=== PATIENT | female | born 1980 | race Caucasian/White ===

== ENCOUNTER 2020-01-30 09:03 | Emergency (ER) | payer OTHER, SELFPAY ==
--- NOTE | ~2020-01-30 | XR_ITS ---
EXAMINATION: XR foot RT min 3V EXAM DATE: 01/30/2020 09:37 INDICATION: No known recent injury provided at this time. Pain of the right foot. TECHNIQUE: Right foot dorsoplantar, lateral and oblique projections obtained and reviewed. There is no prior study for comparison. FINDINGS: Right metatarsal bones unremarkable. There are no bony erosions identified. No periosteal reaction or band of sclerosis to suggest subacute stress fracture. There are no acute fractures or d islocations identified. There is no subcutaneous gas. The soft tissue is unremarkable. There are no radiopaque foreign bodies. IMPRESSION: 1. Unremarkable XR foot RT min 3V exam. Reviewed, dictated and finalized at location A.
[2020-01-30 09:20] VITALS: BP 119/72; PULSE 87; RESP 16; TEMP 36.2; O2SAT 100
--- NOTE | 2020-01-30 09:47 | ED.LOWEXIN ---
HPI - Extremity Injury (Lower) General Chief Complaint: Extremity Injury, Lower Stated Complaint: right foot injury History of Present Illness HPI Narrative: Patient was bit by a dog two weeks ago and about two days ago her foot started to hurt and it is painful even with touch. Patient dog bite is now red and painful and her toes are swollen. Patient denies going to her doctor after she was bit. Per patient the bite was not that bad so she thought she didn't need to go her td is up to date and she denies any fever. Related Data Home Medications Medication Instructions Recorded Confirmed fluoxetine [Prozac] mg 01/30/20 Allergies Allergy/AdvReac Type Severity Reaction Status Date / Time erythromycin base Allergy Rash Verified 01/30/20 09:21 iohexol Allergy Difficulty Verified 01/30/20 09:21 [From contrast - CT, X-RAY] Breathing latex Allergy Itching Verified 01/30/20 09:21 Penicillins Allergy Anaphylactic Verified 01/30/20 09:21 Shock Review of Systems Review of Systems: Narrative: CONSTITUTIONAL: Denies fever, chills, or sweats. EYES: Denies visual changes, redness, or discharge. ENT: Denies rhinorrhea, congestion, sore throat, or otalgia. CARDIOVASCULAR:Denies chest pain, palpitations, or edema. RESPIRATORY: Denies cough or dyspnea. GASTROINTESTINAL: Denies abdominal pain, nausea, vomiting, or diarrhea. GENITOURINARY: Denies dysuria or hematuria. SKIN:[Denies rash or itching. MUSCULOSKELETAL:Denies back pain, joint pain, or myalgia. Right foot pain NEUROLOGIC: Denies headache, numbness, or weakness. PSYCHIATRIC:Denies anxiety or depression PMFSH Comments At time as signature, I have reviewed and agree with nursing past medical, social, surgical and family history. Please see nursing chart for further information. There is no relevant family history pertinent to the presenting complaint. Exam Narrative: Exam Narrative: GENERAL:Well-appearing, well-nourished, and in no acute distress. HEAD:Normocephalic, atraumatic. EYES: PERRLA and EOMI. ENT: Nares clear, no rhinorrhea or epistaxis. Mucous membranes moist. NECK: Supple. CHEST: Clear to auscultation. No respiratory distress. HEART: Regular rate and rhythm. No murmur heard. Normal peripheral pulses. ABDOMEN: Soft, nontender, nondistended, normal active bowel sounds. EXTREMITIES: Normal range of motion. Mild foot and toe edema small area on the top of the foot were bite claudia is slight erythema severe pain on the dorsal severe pain into interdigital spaces and the sulcus space.. SKIN: Warm, dry, no rash. NEURO: No focal deficits. Alert and oriented x3. Course Vital Signs Vital signs: Vital Signs Temperature 97.1 F L 01/30/20 09:20 Pulse Rate 87 01/30/20 09:20 Respiratory Rate 16 01/30/20 09:20 Blood Pressure 119/72 01/30/20 09:20 Pulse Oximetry 100 01/30/20 09:20 Temperature 97.1 F L 01/30/20 09:20 Pulse Rate 87 01/30/20 09:20 Respiratory Rate 16 01/30/20 09:20 Blood Pressure 119/72 01/30/20 09:20 Pulse Oximetry 100 01/30/20 09:20 MDM - Extremity Injury (Lower) Differential Diagnosis Differential diagnosis: Likely ankle sprain and strain, acute internal derangement of knee, fracture of femur and other (cellulitis) Discharge Plan Discharge Clinical Impression: Acute foot pain Qualifiers: Laterality: right Qualified Code(s): M79.671 - Pain in right foot Cellulitis Qualifiers: Site of cellulitis: unspecified site Qualified Code(s): L03.90 - Cellulitis, unspecified Patient Disposition: Home, Self-Care Condition: Stable Instructions: Antibiotic Form, Cellulitis (ED) Prescriptions: New sulfamethoxazole-trimethoprim [Bactrim DS] 800-160 mg tablet 1 tablet PO Q12H 10 Days Qty: 20 RF: 0 No Action fluoxetine [Prozac] 10 mg Capsule RF: 0 Follow-up/Referrals: UNKNOWN,DOCTOR [Primary Care Provider] - Time of Disposition: 09:49 Discharge Date/Time: 01/30/20 09:54
== END 2020-01-30 09:54 | disposition home or self-care (01) ==
PROVIDERS: Emergency Provider Nurse Practitioner Family
DX: L03.115 Cellulitis of right lower limb (principal); W54.0XXA Bitten by dog, initial encounter
CPT/HCPCS: 73630; 99203; G0463

== ENCOUNTER 2025-06-14 13:01 | Emergency (ER) | payer OTHER, SELFPAY ==
--- OUTSIDE RECORDS SUMMARY | 2018-05-07 04:56 | XMS_ITS | Continuity of Care Document ---
Author Organization [facility] Address [address] [place] [address] Phone Care Team Providers Care Feather Sawyer Name Role Phone Charu Arias Unavailable Unavailable Allergies, Adverse Reactions, Alerts Substance Reaction Status Criticality latex rash Active No Information azithromycin Active No Information Penicillins Anaphylaxis Active No Information POTASSIUM CLAVULANATE Anaphylaxis Active No Inf ormation AMOXICILLIN TRIHYDRATE Anaphylaxis Active No In formation Medications Medication Instructions Dosage Effective Dates (start - stop) Status Comments alprazolam 0.5 mg tablet take 1 tablet by ORAL route 3 times every day use prn anxiety 0.5 MG - Active will need appt for refills fluoxetine 20 mg tablet TAKE 1 AND 1/2 TABLETS BY ORAL ROUTE EVERY DAY IN THE MORNING - Active hyoscyamine 0.125 mg sublingual tablet take 1 - 2 by Oral route every 4 - 6 hours prn abdominal pain - Active Procedures Procedure Date PREV VISIT, EST, AGE 18-39 OFFICE/OUTPATIENT VISIT, EST OFFICE/OUTPATIENT VISIT, EST OFFICE/OUTPATIENT VISIT, EST Depression Scrn, Documented As Pos W/ F/ u Plan OFFICE/OUTPATIENT VISIT, EST OFFICE/OUTPATIENT VISIT, EST Triamcinolone diacetate inj Arthrocentesis, small joint/bursa OFFICE/OUTPATIENT VISIT, NEW Advance Directives Directive Yes / No Effective Date File Name No Information Encounters Encounter Description Practice Location Reason(s) For Visit Diagnoses Date Provider Providers Copied on Encounter [facility], [address], [place], [id number], [place] tel:[phone] [facility] No Information 8 Kartik Box. [address] [place], [address], [place]. tel:[phone] [facility], [address], [place], [id number], [place] tel:[phone] [facility] No Information 7 Kartik Box. [address] [place], [address], [place]. tel:[phone] PREV VISIT, EST, AGE 18-39 [facility], [address], [place], [id number], [place] tel:[phone] [facility] Preventive exam (chief complaint)U RI (chief complaint) Encntr for general adult medical exam w/o abnormal findingsBreast cancer screeningCervic al cancer screeningScreen ing examination for infectious diseaseScreenin g for vaginal cancerS/P IRMA (total abdominal hysterectomy)Fa milial hypercholestere miaVitamin D deficiencySever e anxiety with panicInfection of airways 7 Kartik Box. [address] [place], [address], [place]. tel:[phone] OFFICE/OUTPA TIENT VISIT, EST [facility], [address], [place], [id number], [place] tel: [phone] [facility] Depression (chief complaint) Severe anxiety with panic 7 Chandan Flor. [address], [place], [id number], [place]. tel:[phone] OFFICE/OUTPA TIENT VISIT, EST [facility], [address], [place], [id number], [place] tel:[phone] [facility] Anxiety (chief complaint) Severe anxiety with panicDepression screening 7 Chandan Flor. [address], [place], [id number], [place]. tel:[phone] OFFICE/OUTPA TIENT VISIT, EST [facility], [address], [place], [id number], [place] tel:[phone] [facility] Follow Up of Abdominal pain (chief complaint) Abdominal pain, chronic, left lower quadrantCigaret te nicotine dependence without complicationIrr itable bowel syndrome with diarrhea 7 Willard Biswas. [address], [place], [id number], [place]. tel:[phone] OFFICE/OUTPA TIENT VISIT, EST [facility], [address], [place], [id number], [place] tel:[phone] [facility] depression (chief complaint)n ight sweating (chief complaint) Recurrent major depressive disorder, in remissionNight sweats 7 Kartik Box. [address] [place], [address], [place]. tel:[phone] OFFICE/OUTPA TIENT VISIT, NEW [facility], [address], [place], [id number], [place] tel:[phone] [facility] depression (chief complaint)M usculoskele anai pain (chief complaint)c hronic abdominal pain (chief complaint) Recurrent major depressive disorder, in remissionDegene rative arthritis of thumb, leftAbdominal pain, chronic, left lower quadrantOther chronic pain 7 Kartik Box. [address] [place], [address], [place]. tel:[phone] Family History Family Member Type Diagnosis Age At Onset Brother Problem (finding) malignant neoplasm of k idney Father Problem (finding) hypertension Father Problem (finding) diabetes mellitus type 2 Problem (finding) No family history of Al zheimer's disease Mother Problem (finding) raised blood lipids Sister Problem (finding) depression Brother Problem (finding) depression Mother Problem (finding) depression Mother Problem (finding) migraine Father Problem (finding) coronary arterioscleros is Problem (finding) No family history of St roke Problem (finding) No family history of As thma Immunizations Vaccine Date Status Comments Tdap (Adacel) administered Source: Other Registry Payers Payer name Insurance type Covered democrat ID Lilly Kirk (s) Open Access Plus CI [id number] Social History Type Description Quantity Date Captured Comments Alcohol Use Details Unknown Caffeine Use Details Unknown Tobacco Use Status Smoking Status No Information Sex Female Chief Complaint And Reason For Visit No Information Reason For Referral Reason For Referral No Information Plan Of Treatment Date Type Action Status Goal Tobacco cessation counseling completed Goal Tobacco cessation counseling completed Referral Ordered: Referral to Quitline ordered History Of Present Illness Encounter Date Complaint History Of Prese nt Illness Preventive exam The patient stat es she uses none and hysterectomy for control. Her menses is absent. Negative for: breast discharge, breast lump(s) and breast pain. Positive for: breast self exam. Pertinent negatives include anxiety, depression, sleep disturbances, urinary incontinence, urinary urgency and vaginal discharge. Diet healthy.The patient states her exercise frequency is 3-4 times/week. The patient does use tobacco. Tobacco cessation has been discussed. She does drink alcohol. Additional information: Brerast enlargement in the course of last 2 months. URI The symptoms hav e worsened. The symptoms occur constantly. The patient presents with chills, cough, earache and fatigue. The illness is associated with hoarseness. Depression This is a follow up visit. The patient presents with compulsive thoughts, difficulty concentrating and feelings of guilt but denies anxious/fearful thoughts, decreased need for sleep, depressed mood, difficulty falling asleep, difficulty staying asleep, diminished interest or pleasure, easily startled, excessive worry or fatigue. Additional information: Patient states she is feeling better. has been using the alprazolam nightly; skipped one night and woke in a panic; has seen the therapist 3x and has another appt today; plans to try to go back on 08/04; classified advertising supervisor advised her not to speak with physician involved in the case that is causing the stress; likes being off and having more time with family and less called; turned off phone as was getting 10 calls from work/d; has decided to drop transplant team/call and do just vascular which will be less stressful; Anxiety This is an initi al visit. The patient presents with anxious/fearful thoughts, decreased need for sleep, depressed mood, difficulty concentrating, difficulty falling asleep, difficulty staying asleep, diminished interest or pleasure, easily startled, excessive worry, fatigue, feelings of guilt, racing thoughts and restlessness but denies compulsive thoughts or paranoia. Additional information: Patient states 2 weeks ago one of her patients she is now having anxiety and depression. Friend also and dad passed in past 1.5 yrs; angry about loss of pt on 07/08 and having trouble processing since feels more could have been done. out 07/11 afternoon; sent home early on 07/15 and out 07/16,5,6,9; Follow Up of Abdominal pain Onse t: 10 years ago. Duration is varies. It occurs randomly. The problem is worse. Location is LLQ. There is no radiation. Context: no pattern noted. Symptom is aggravated by food. Associated symptoms include blood in stool, diarrhea, heartburn and nausea. Pertinent negatives include back pain, bloating, constipation, dyspnea, eructation, fever, flank pain, flatulence, menstruation, reflux and vomiting. Additional information: new to us from [facility]. extensive w/u in the past through [facility]. records in chart. had been doing better since 07/29(pain manageable and didn't require being seen). flaring again in last 3 d. IRMA but has left ovary. pt doesn't remember if she's tried prn antispasmodics or not. h/o cholecystectomy. off narcotics since 07/29. uses peppermint tea to help. on fluoxetine for 17yrs. prozac increased at last visit-helping her moods. desires to quit smoking. had suicidal thoughts age 20 but none since then and that was only. missing work right now due to this flare. depression This is a follow up visit. There is improvement of initial symptoms. The patient reports functioning as somewhat difficult. The patient presents with anxious/fearful thoughts, difficulty falling asleep, difficulty staying asleep and poor judgment but denies difficulty concentrating. The patient's risk factors include history of depression. The patient's relieving factors are medication (fLUOXETINE). Additional information: Pt is here today for a med check for fluoxetine. Stated that the doseage that she is currently on is managing her symptoms well. Having some sleeping issues also waking up in sweats. night sweating waking up in a s weat in middle of the night, every night wakes up, last 6months to 1 yr. H/O TAHRSO, left retained, 11 yrs ago. depression This is an initi al visit. The symptoms occur constantly. The patient does not present with depressed mood, diminished interest or pleasure or thoughts of or suicide. The patient's risk factors include history of depression. The depression is aggravated by conflict or stress. The patient's relieving factors are medication (floxetine). Additional information: Pt states the Prozac manages her sx's well when she is on it. Musculoskeletal pain Onset: 2 ye ars ago. Duration: 2 Years. Severity level is 5. It occurs constantly and is worsening. Location: right Right Shoulder and and also toes. There is no radiation. The pain is aching, dull, sharp and throbbing. Context: there is no injury. The pain is aggravated by night pain and grabbing. The pain is relieved by OTC medicines: ibuprofen. 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 Pertinent negatives include numbness and popping. Hand Dominance: right. Additional information: Family history RA recent labs per the patient stated she has high RF in them. 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 Left thumb is the worst. chronic abdominal pain 3 colonos copies previously, no UC or CD, IBS is possible, on some meds and diet for this, stress effects that. Baltalazide, [place] and Dilaudid rx for gut in the past. 15 days/yr steroids due to this at [place]. No longer on dilaudid, norco. Raw veggies and red meat also give her sensitivity. Interested in food sensitivity testing Functional Status Date Functional Assessmen t No Information Instructions Date Instruction Additional Infor antonio Dec-13-2017 Z-pack Related to Infec tion of airways If you have anxiety and/or depression and feel worse or if you may harm yourself or others, you will need to seek immediate care either here or in the Emergency Department. An emergent evaluation will be done and help will be given. If you do not feel as if your medication is helping you, we will need to see you to make a plan. I strongly encourage seeing a counsellor in addition to medication treatment to assist you. Related to Severe anxiety with panic Breast exam done, tara leos self breast exam monthly. This is the first line in breast cancer prevention along with routine mammograms starting at 40 y/o. Each patient will have specific recommendations with their family history and breast exam. Return for any changes in your breasts or abnormal lumps. Related to Breast cancer screening continue fluoxetine and alprazolam at night; continue counselling; goal to eventually just have alprazolam prn; Related to Severe anxiety with panic continue fluoxetine at current dose; add alpazolam as needed. See [facility] for counselling; Hopefully back to work 08/04 after 2 wks of intensive therapy. Encouraged to request meeting with OR team to process event. Related to Severe anxiety with panic start chantix. d/c a nd call me immediately if any increased agitation, dreams, suicidal thoughts or worsening depression. due to nause as adr, pt advised to start this once her current ibs flare under control. Related to Cigarette nicotine dependence without complication trial of xifaxin. wo rk off 3d. use prn hyoscyamine in order to hopefully be able to get back to work in 2d. pt needs to quit smoking also. f/u in 1month. discussed ibs in detail with pt today. Related to Irritable bowel syndrome with diarrhea Pt has dx'd IBS diar gricel. w/u extensive in past. no need for further w/u. consider food allergy testing if pt fails xifaxin. seee problem #2. Related to Abdominal pain, chronic, left lower quadrant Suggested education reviewed for Abdominal pain, chronic, left lower quadrant (R10.32), chronic, Act Related to {[email or web address]} Please let us know i f you are not improving or if you are worse. Most people will improve, but there are times when you are worse or not improving and you must let us know so we can form a plan of action. We have senior loss control specialist physicians and are open a half a day Friday (9am-1pm). If you think you are having a reaction to a medication please call or seek care for emergent symptoms. Related to Night sweats Please let us know i f you are not improving or if you are worse. Most people will improve, but there are times when you are worse or not improving and you must let us know so we can form a plan of action. We have senior loss control specialist physicians and are open a half a day Friday (9am-1pm). If you think you are having a reaction to a medication please call or seek care for emergent symptoms. Related to Degenerative arthritis of thumb, left If you have anxiety and/or depression and feel worse or if you may harm yourself or others, you will need to seek immediate care either here or in the Emergency Department. An emergent evaluation will be done and help will be given. If you do not feel as if your medication is helping you, we will need to see you to make a plan. I strongly encourage seeing a counsellor in addition to medication treatment to assist you. Related to Recurrent major depressive disorder, in remission Assessments Type Assessment Date No Information Patient Care Teams Name Effective Dates (start - stop) Status Members No Information
--- OUTSIDE RECORDS SUMMARY | 2018-05-07 04:56 | XMS_ITS | Continuity of Care Document ---
Author Organization [facility] Address [address] [place] [address] Phone Care Team Providers Care Freight Receiver Name Role Phone Charu Arias Unavailable Unavailable [...] Diagnoses Date Provider Providers Copied on Encounter [facility], [address], [place], [id number], [place] tel:[phone] [facility] No Information 8 Kartik Box. [address] [place], [address], [place]. tel:[phone] [facility], [address], [place], [id number], [place] tel:[phone] [facility] No Information 7 Kartik Box. [address] [place], [address], [place]. tel:[phone] PREV VISIT, EST, AGE 18-39 [facility], [address], [place], [id number], [place] tel:[phone] [facility] Preventive exam (chief complaint)U RI (chief complaint) Encntr for general adult medical exam w/o abnormal findingsBreast cancer screeningCervic al cancer screeningScreen ing examination for infectious diseaseScreenin g for vaginal cancerS/P IRMA (total abdominal hysterectomy)Fa milial hypercholestere miaVitamin D deficiencySever e anxiety with panicInfection of airways 7 Kartik Box. [address] [place], [address], [place]. tel:[phone] OFFICE/OUTPA TIENT VISIT, EST [facility], [address], [place], [id number], [place] tel: [phone] [facility] Depression (chief complaint) Severe anxiety with panic 7 Chandan Flor. [address], [place], [id number], [place]. tel:[phone] OFFICE/OUTPA TIENT VISIT, EST [facility], [address], [place], [id number], [place] tel:[phone] [facility] Anxiety (chief complaint) Severe anxiety with panicDepression screening 7 Chandan Flor. [address], [place], [id number], [place]. tel:[phone] OFFICE/OUTPA TIENT VISIT, EST [facility], [address], [place], [id number], [place] tel:[phone] [facility] Follow Up of Abdominal pain (chief complaint) Abdominal pain, chronic, left lower quadrantCigaret te nicotine dependence without complicationIrr itable bowel syndrome with diarrhea 7 Willard Biswas. [address], [place], [id number], [place]. tel:[phone] OFFICE/OUTPA TIENT VISIT, EST [facility], [address], [place], [id number], [place] tel:[phone] [facility] depression (chief complaint)n ight sweating (chief complaint) Recurrent major depressive disorder, in remissionNight sweats 7 Kartik Box. [address] [place], [address], [place]. tel:[phone] OFFICE/OUTPA TIENT VISIT, NEW [facility], [address], [place], [id number], [place] tel:[phone] [facility] depression (chief complaint)M usculoskele anai pain (chief complaint)c hronic abdominal pain (chief complaint) Recurrent major depressive disorder, in remissionDegene rative arthritis of thumb, leftAbdominal pain, chronic, left lower quadrantOther chronic pain 7 Verdugo Charu. [address] [place], [address], [place]. tel:[phone] Family History Family Member Type Diagnosis Age At Onset Brother Problem (finding) malignant neoplasm of k idney Father Problem (finding) hypertension Father Problem (finding) diabetes mellitus type 2 Problem (finding) No family history of St roke Problem (finding) No family history of Al zheimer's disease Mother Problem (finding) raised blood lipids Sister Problem (finding) depression Problem (finding) No family history of As thma Brother Problem (finding) depression Mother Problem (finding) depression Mother Problem (finding) migraine Father Problem (finding) coronary arterioscleros is Immunizations Vaccine Date Status Comments Tdap (Adacel) administered Source: Other Registry Payers Payer name Insurance type Covered democrat ID Lilly Kirk (s) Open Access Plus CI [id number] Social History Type Description Quantity Date Captured [...] to try to go back on 08/04; rate supervisor advised her not to speak with [...] awakening, nocturnal pain, swelling, weakness and Loses occupational physician strength. Pertinent negatives include numbness and popping. Hand Dominance: right. Additional information: Family history RA recent labs per the patient stated she has high RF in them. 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 Left thumb is the worst. chronic abdominal pain 3 colonos copies previously, no UC or CD, IBS is possible, on some meds and diet for this, stress effects that. Baltalazide, [place] and Dilaudid rx for gut in the past. 15 days/yr steroids due to this at [place]. No longer on dilaudid, norco. Raw veggies [...] Related to Cigarette nicotine dependence without complication Pt has dx'd IBS diar gricel. w/u extensive in past. no need for further w/u. consider food allergy testing if pt fails xifaxin. seee problem #2. Related to Abdominal pain, chronic, left lower quadrant trial of xifaxin. wo rk off 3d. use prn hyoscyamine in order to hopefully be able to get back to work in 2d. pt needs to quit smoking also. f/u in 1month. discussed ibs in detail with pt today. Related to Irritable bowel syndrome with diarrhea Suggested education reviewed for Abdominal pain, chronic, left lower quadrant (R10.32), chronic, Act Related to {[email or web address]} Please let us know i f you are not improving or if you are worse. Most people will improve, but there are times when you are worse or not improving and you must let us know so we can form a plan of action. We have insulation machine operator physicians and are open a half a [...] form a plan of action. We have insulation machine operator physicians and are open a half a [...]
--- NOTE | ~2025-06-14 | XR_ITS ---
EXAM/PROCEDURE: XR chest 2V - 06/14/2025 15:10 CDT HISTORY: 45 years old Female with choked on pill, sob TECHNIQUE: Two view(s) of the chest. COMPARISON: None available. FINDINGS: LUNGS/ PLEURA: No focal consolidation. Mild perihilar bronchial wall thickening. HEART/ MEDIASTINUM: Heart appears normal in size. BONES: Degenerative changes. OTHER: Right upper quadrant cholecystectomy clips. IMPRESSION: No focal consolidation. Mild perihilar bronchial wall thickening, findings suggestive of respiratory bronchiolitis. Reviewed, dictated and finalized at location N. IMPRESSION: No focal consolidation. Mild perihilar bronchial wall thickening, findings sugg estive of respiratory bronchiolitis.
--- NOTE | ~2025-06-14 | CT_ITS ---
EXAMINATION: CT soft tissue neck wo con DATE: 06/14/2025 18:27 INDICATION: Possible foreign body TECHNIQUE: Computed tomography (CT) of the cervical spine was performed without intravenous contrast. The dose-length product was 132.64 mGy-cm. Automated exposure control and iterative reconstruction technique were employed. COMPARISON: None FINDINGS: Paranasal sinuses and mastoids are pneumatized. No significant cervical soft tissue abnormality. No evidence for foreign body. No paraspinal soft tissue edema. Epiglottis within normal limits. No subglottic narrowing. There are gland is unremarkable. Lung apices are normal. Mild cervical spon dylosis. IMPRESSION: 1. Unremarkable CT neck. No foreign body identified. Reviewed, dictated and finalized at location O.
--- NOTE | ~2025-06-14 | XR_ITS ---
EXAM/ PROCEDURE: XR soft tissue neck - 06/14/2025 15:10 CDT HISTORY: 45 years old Female with choked on pill, sob COMPARISON: None available TECHNIQUE: Two view(s) FINDINGS/ IMPRESSION: There are no fractures or dislocations.Joint spaces are within normal limits. No radiopaque foreign body seen. Reviewed, dictated and finalized at location N.
--- NOTE | ~2025-06-14 | CT_ITS ---
EXAMINATION: CT diagnostic chest wo con DATE: 06/14/2025 18:27 INDICATION: Possible foreign body TECHNIQUE: Computed tomography (CT) of the chest was performed without intravenous contrast. The dose-length product was 132.64 mGy-cm. Automated exposure control and iterative reconstruction technique were employed. COMPARISON: None FINDINGS: Heart size normal. No significant pleural or pericardial effusion. No thoracic lymphadenopathy. Status post cholecystectomy. No foreign bodies identified. No endobronchial lesions. No focal consolidation. No pneumothorax. No thoracic lymphadenopathy. No acute osseous abnormality. Mild thoracic spondylosis. IMPRESSION: 1. No acute cardiopulmonary disease. No evidence for foreign body. Reviewed, dictated and finalized at location O.
[2025-06-14 13:05] VITALS: BP 111/71; PULSE 106; RESP 18; TEMP 36.3; O2SAT 100
--- OUTSIDE RECORDS SUMMARY | 2025-06-14 13:13 | XMS_ITS | Clinical Summary ---
Author Organization [facility] [address] [place] [address] Address [facility] [place] [address] Care Team Providers Care Family Day Care Provider Name Role Phone Charu Busby MD Primary Care Provider [phone] Allergies Active Allergy Reactions Criticality Noted Date Comments Doxycycline Rash Low 11/09/2020 Given at the time of several other new meds. Not sure if this is actually the allergy. Iodinated Contrast Media Other (See Comments) 05/08/2022 Iodine Shortness of Breath/Wheezing High 06/04/2019 Contrast media Latex Shortness of Breath/Wheezing High 06/04/2019 Penicillins Anaphylaxis High 06/04/2019 Medications cholecalciferol 1,250 mcg (50,000 unit) CapsuleIndicatio ns:Vitamin D deficiency Take 1 Capsule (50,000 Units) by mouth every 7 days. 12 Capsule 4 Active diclofenac sodium (VOLTAREN) 75 mg Tablet, Delayed Release (E.C.)Indication s:Arthralgia, unspecified joint Take 1 Tablet (75 mg) by mouth 2 times daily as needed for Pain. 60 Tablet 4 Active amitriptyline (ELAVIL) 10 mg tabletIndication s:IBD (inflammatory bowel disease),Arthrit is,Irritable bowel syndrome with constipation Take 1 Tablet (10 mg) by mouth daily at bedtime. 90 Tablet 08/24/2024 4:26 PM MANAGER CENTER 4 Active linaCLOtide (LINZESS) 145 mcg capsuleIndicatio ns:Irritable bowel syndrome with constipation Take 1 Capsule (145 mcg) by mouth daily before breakfast. 90 Capsule 09/23/2024 7:22 PM MANAGER CENTER 4 Active progesterone micronized (PROMETRIUM) 100 mg Capsule Take 1 Capsule (100 mg) by mouth daily at bedtime. 90 Capsule 3 05/23/2025 10:09 AM CDT 5 Active FLUoxetine (PROzac) 40 mg capsule Take 1 Capsule (40 mg) by mouth daily. 100 Capsule 3 05/23/2025 10:09 AM CDT 5 Active spironolactone (ALDACTONE) 50 mg tablet Take 1 Tablet (50 mg) by mouth daily. 30 Tablet 12/10/2024 7:49 PM MANAGER CENTER 5 Active methylPREDNISolo ne (MEDROL DOSPACK) 4 mg Tablets, Dose Pack Take as directed on package. 21 Tablet 03/02/2025 4:09 PM CDT 5 Active orphenadrine (NORFLEX) 100 mg Extended Release tablet Take 1 Tablet (100 mg) by mouth 2 times daily. 60 Tablet 2 05/23/2025 10:09 AM CDT 5 Active buPROPion HCL (WELLBUTRIN XL) 150 mg Extended Release 24 hour tabletIndication s:Recurrent major depressive disorder, in partial remission Take 1 Tablet (150 mg) by mouth every morning. 90 Tablet 3 05/23/2025 10:09 AM CDT 5 Active buPROPion HCL (WELLBUTRIN XL) 150 mg Extended Release 24 hour tabletIndication s:Recurrent major depressive disorder, in partial remission Take 1 Tablet (150 mg) by mouth daily in the morning. 100 Tablet 3 02/14/2025 7:08 PM CDT 4 05/19/20 25 Discontinu ed(Reorder ) orphenadrine (NORFLEX) 100 mg Extended Release tablet Take 1 Tablet (100 mg) by mouth 2 times daily as needed. 90 Tablet 1 11/29/2024 6:41 PM MANAGER CENTER 4 05/20/20 25 Discontinu ed(Duplica te Therapy) Active Problems Problem Noted Date Diagnosed Date Arthritis 05/08/2022 IBD (inflammatory bowel disease) 07/10/2020 Overview (05/08/2022): Added automatically from request for surgery [id number] Depression 05/04/2018 Resolved Problems Problem Noted Date Diagnosed Date Resolved Date Large bowel obstruction 06/28/2020 12/2 05/2022 Encounters Date Type Department Care Team Description 05/19/2025 8:30 AM CDT Telephone Check Up [facility] [address] [place] [address] Marilu Aceves, PHARMACIST Chronic fatigue (Primary Dx); Insomnia, unspecified type; Perimenopausal symptoms 05/19/[address] [facility] [address] [place] [phone] Charu Busby MD Recurrent major depressive disorder, in partial remission 05/19/[address] [facility] [address] [place] [address] Charu Busby MD Perimenopausal symptoms (Primary Dx); Screening mammogram, encounter for 03/15/2025 External Device Data STL ABSTRACTION Provider, Abstract from Last 3 Months Immunizations Immunization Administration Dates Next Due (PFIZER)(12 YR UP) COVID-19 VACCINE - EMERGENCY USE AUTHORIZATION, MRNA, [id number]) 30 MCG/0.3 ML IM SUSP 08/01/2021 Influenza Seasonal Unspecifi ed Formulation IM 07/27/2024,07/29/2023,07/29/2023,2021,06/27/2022,07/06/2021 Family History Medical History Relation Name Comments No Known Problems Daughter Heart Disease Father Anil Avery Depression Mother Juanitomj Avery Sprunt High Cholesterol Mother Juanito Gena Sprunt Arthritis-rheumatoid Paternal Grandmother Dot valent Heart Disease Paternal Grandmother Dot valent Other Paternal Grandmother Dot valent Rheumat oid arthritis Relation Name Status Comments Brother Alive Daughter Alive Father Anil Yuenent Alive Maternal Grandfather Maternal Grandmother Alive Mother Juanitomj Avery Sprunt Alive Paternal Grandfather Paternal Grandmother Dot valent Sister Alive Social History Tobacco Use Types Packs/Day Years Used Date Smoking Tobacco: Former Cigarettes 0.3 20 0 10/14/2001 - 10/14/2021 Passive Smoke Exposure: Never Smokeless Tobacco: Never Tobacco Cessation:Counseling Given: No Alcohol Use Standard Drinks/Week Comments Yes 14 (1 standard drink = 0.6 oz pu re alcohol) 1-2 per night Feeling Safe Answer Date Recorded Are you in a relationship wi th someone who hurts you emotionally and/or physically? Unable to obtain 03/28/2023 Comments No Sex and Gender Information Value Date Recorded Sex Assigned at Not on file Legal Sex Female 5:28 PM CDT Gender Identity Not on file Sexual Orientation Not on file Last Filed Vital Signs Vital Sign Reading Time Taken Comments Blood Pressure 116/82 03/02/2025 3:06 PM CDT Pulse 77 03/02/2025 3:06 PM CDT Temperature 37 C (98.6 F) 03/02/2025 3:06 PM CDT Respiratory Rate 20 03/02/2025 3:06 PM CDT Oxygen Saturation 99% 03/02/2025 3:06 PM CDT Inhaled Oxygen Concentration - - Weight 62.6 kg (138 lb) 03/02/2025 3:06 PM CDT Height 160 cm (5' 3) 03/02/2025 3:06 PM CDT Body Mass Index 24.45 03/02/2025 3:06 PM CDT Plan of Treatment Upcoming Encounters Date Type Department Care Team (Late st Contact Info) Description 09/30/2025 8:00 AM MANAGER CENTER Office Visit [facility] Primary [facility] [address] [place] [address] Erika Norton, PARACH[employer] PAN[employer] JOINER [address] [place] [address] 11/10/2025 8:30 AM MANAGER CENTER Telephone Check Up [facility] [address] [place] [address] Marilu Aceves, PHARMACIST [address] [place] [address] Health Maintenance Due Date Last Done Comments DTAP/TDAP/TD VACCINES (1 - Tdap) 1999 HEPATITIS B VACCINES (1 of 3 - 19+ 3-dose series) 1999 HPV VACCINES (1 - 3-dose SCD M series) 2007 BREAST CANCER SCREENING 2020 COVID-19 Vaccine (2023-2 5 season) 2024 08/01/2021, 10/19/2020, 09/28/2020 Preventative Visit- Commercial 10/13/2024 09/22/2024 , 10/09/2022 COLORECTAL SCREENING 2025 Colorectal Cancer Screening 2025 FIT-DNA Q 3 years 2025 FIT/FOBT Q 1 year 2025 Flex Sig/CT Colonography Q 5 years 2025 INFLUENZA VACCINE (#1) 2025 , 07/29/2023, 07/29/2023, Additional history exists Insurance BCBS BLUE ACCESS/TRUE BLUE PPO RX [employer] RX Member Subscriber Plan / Payer (Ef fective for All Dates) Name:Angella Lee Relation to Subscriber:Self Name:Angella Lee Subscriber ID:Not on file Payer ID:Not on file Type:Not on file Address: [place] [employer] Care Teams Family Day Care Provider Relationship Specialty Start Date End Date Charu Busby MD [address] [place] [phone] PCP - General Internal Medicine 10/17/22
--- OUTSIDE RECORDS SUMMARY | 2025-06-14 13:13 | XMS_ITS | Encounter Summary ---
Author Organization [facility] Address [address] [place] [address] Care Team Providers Care Staff Toxicologist Name Role Phone None, Provider Primary Care Provider Unavaila ble Encounter Details Date Type Department Care Team (Late st Contact Info) Description 08/04/2020 Prep for Procedure [facility] [place], [place] [phone] Ronaldo Xie MD [address] [phone] Social History Tobacco Use Types Packs/Day Years Used Date Smoking Tobacco: Every Day Cigarettes Smokeless Tobacco: Never Comments:doing e cigarettes Alcohol Use Standard Drinks/Week Comments Yes 0 (1 standard drink = 0.6 oz pure alcohol) at least a glass of wine a day AUDIT-C Answer Date Recorded Frequency of Alcohol Consumption Never 09/29/2019 Average Number of Drinks Not on file 019 Frequency of Binge Drinking Not on file 09/12 Comments No Sex and Gender Information Value Date Recorded Sex Assigned at Not on file Legal Sex Female 8:18 PM CDT Gender Identity Not on file Sexual Orientation Not on file COVID-19 Exposure Response Date Recorded In the last month, have you been in contact with someone who was confirmed or suspected to have Coronavirus / COVID-19? No / Unsure 08/07/2020 12:37 PM CDT documented as of this encounter Functional Status * RETIRED Are you deaf or do you have serious difficulty hearing Answer Date of Assessment Author Status No 06/28/2020 1:16 PM CDT Activ e * RETIRED Are you blind or do you have serious difficulty seeing, even when wearing glasses? Answer Date of Assessment Author Status No 06/28/2020 1:16 PM CDT Activ e * Do you have serious difficulty walking or climbing stairs? Answer Date of Assessment Author Status No 06/28/2020 1:16 PM CDT Patricia Kramer RN Active * Do you have difficulty dressing or bathing? Answer Date of Assessment Author Status No 06/28/2020 1:16 PM CDT Patricia Kramer RN Active * Because of a physical, mental, or emotional condition, do you have difficulty doing errands alone such as visiting a doctor's office or shopping? Answer Date of Assessment Author Status No 06/28/2020 1:16 PM CDT Patricia Kramer RN Active documented as of this encounter Mental Status * Because of a physical, mental, or emotional condition, do you have serious difficulty concentrating, remembering, or making decisions? Answer Entry Date Author Status No 06/28/2020 1:16 PM CDT Patricia Kramer RN Active documented in this encounter Plan of Treatment Not on file documented as of this encounter Results * PRE-SURGICAL/PRE-PROCEDURE CORONAVIRUS (COVID 19) (08/04/2020 12:40 PM CDT) CORONAVIRUS SARS COV 2 PCR (RESP) NOT DETECTED NOT DETECTED 08/05/2020 8:21 PM CDT [facility] Comment: A Not Detected (negative) test result for this test means that SARS- CoV-2 RNA was not present in the specimen above the limit of detection. A negative result does not rule out the possibility of COVID-19 and should not be used as the sole basis for treatment or patient management decisions. If COVID-19 is still suspected, based on exposure history together with other clinical findings, re-testing should be considered in consultation with public health authorities. Laboratory test results should always be considered in the context of clinical observations and epidemiological data in making a final diagnosis and patient management decisions. Please review the Fact Sheets and FDA authorized labeling available for health care providers and patients using the following websites: https://[email or web address].com/home/Covid-19/HCP/NAAT/fact-sheet2 https://www.[employer]/home/Covid-19/Patients/NAAT/ fact-sheet2 This test has been authorized by the FDA under an Emergency Use Authorization (EUA) for use by authorized laboratories. Due to the current public health emergency, [facility] is receiving a high volume of samples from a wide variety of swabs and media for COVID-19 testing. In order to serve patients during this public health crisis, samples from appropriate clinical sources are being tested. Negative test results derived from specimens received in non-commercially manufactured viral collection and transport media, or in media and sample collection kits not yet authorized by FDA for COVID-19 testing should be cautiously evaluated and the patient potentially subjected to extra precautions such as additional clinical monitoring, including collection of an additional specimen. Methodology: Nucleic Acid Amplification Test (NAAT) includes RT-PCR or TMA Additional information about COVID-19 can be found at the [facility] website: [email or web address]/Covid19. Test performed at [facility] [address] [place] [address] Director: KARLEY JIMENEZ DO,MPH FIRST TEST UNKNOWN 08/04/2020 2:34 PM CDT [facility] EMPLOYED IN HEALTHCARE YES 08/04/2020 2:34 PM CDT [facility] SYMPTOMATIC DEFINED BY CDC UNKNOWN 08/04/2020 2:34 PM CDT [facility] DATE OF SYMPTOM ONSET NO 08/04/2020 2:40 PM CDT [facility] HOSPITALIZATION STATUS NO 08/04/2020 2:34 PM CDT [facility] PATIENT IN ICU NO 08/04/2020 2:34 PM CDT [facility] RESIDENT OF [facility] C[facility] UNKNOWN 08/04/2020 2:34 PM CDT [facility] NOT 08/04/2020 2:34 PM CDT [facility] PATIENT'S RACE WHITE OR 08/04/2020 2:34 PM CDT [facility] ETHNICITY NONHISPANIC 08/04/2020 2:34 PM CDT [facility] SOURCE (QST) NASOPHARYNGEAL SWAB 08/04/2020 2:34 PM CDT [facility] NASOPHARYNGEAL SWAB / Unknown 08/04/2020 12:40 PM CDT us Ronaldo Xie MD MICROBIOLOGY - GENERAL ORDERABLE S Final Result [facility] [address] [place] [address], [place] [phone] [facility] [address] [place] [address], documented in this encounter Visit Diagnoses Diagnosis Abdominal pain- Primary Abdominal pain, unspecified site documented in this encounter Additional Health Concerns Infection Onset Date Last Indicated Resolved Time COVID-19 Rule Out 08/04/2020 08/04/2020 08/05/2020 8:21 PM CDT COVID-19 Rule Out 09/11/2020 09/11/2020 09/11/2020 9:43 AM STAVE JOINTER COVID-19 Rule Out 11/11/2020 11/11/2020 11/12/2020 3:16 PM [employer] [employer] COVID-19 Rule Out 05/11/2021 05/11/2021 05/11/2021 11:52 AM CDT documented as of this encounter Care Teams Staff Toxicologist Relationship Specialty Start Date End Date None, Provider, PCP - General 09/29/19 documented as of this encounter
--- OUTSIDE RECORDS SUMMARY | 2025-06-14 13:13 | XMS_ITS | Encounter Summary ---
Author Organization [facility] Address [address] [place] [address] Care Team Providers Care Analytical Scientist Name Role Phone Charu Busby MD Primary Care Provider [phone] Encounter Details Date Type Department Care Team (Late st Contact Info) Description 10/28/2021 Lab Requisition [facility] Services [address] [place] [address] [place] [address] [facility] [address] [place] [address] Social History Tobacco Use Types Packs/Day Years Used Date Smoking Tobacco: Never Assessed Comments Unknown Sex and Gender Information Value Date Recorded Sex Assigned at Not on file Legal Sex Female 5:28 PM CDT Gender Identity Not on file Sexual Orientation Not on file documented as of this encounter Plan of Treatment Upcoming Encounters Date Type Department Care Team (Late st Contact Info) Description 09/30/2025 8:00 AM INSTRUMENT [employer] Office Visit [facility] Primary Care [facility] [address] [place] [address] Erika Norton, ANAYA [address] [place] [address] 11/10/2025 8:30 AM [employer]UMENT [employer] Telephone Check Up [facility] [address] [place] [address] Marilu Aceves, PHARMACIST [address] [place] [address] documented as of this encounter Procedures Procedure Name Priority Date/Time Associated Diagnosis Comments 2019 NOVEL CORONAVIRUS (COVID-19) PCR DETECTION Routine 10/28/2021 9:50 AM [employer] documented in this encounter Results * 2019 NOVEL CORONAVIRUS (COVID-19) PCR DETECTION (10/28/2021 9:50 AM [employer]UMENT [employer]) COVID-19 PCR NOT DETECTED Not Detected 10/28/19 11:35 AM INSTRUMENT MECHANIC [employer] [facility] PERFORM[facility] 10/28/2021 11:35 AM INSTRUMENT ME[employer] [facility] Upper Respiratory 10/28/2021 9:50 AM [employer]UMENT [employer] 10/28/2021 10:34 AM [employer] Narrative [facility] - 10/28/2021 11:35 AM [employer]UMENT [employer] This test has been authorized by the FDA under an Emergency Use Authorization for use by authorized laboratories. This test has been validated in accordance with the FDA's guidance regarding Coronavirus Disease-2019 testing. [employer] specimen types and timing for peak viral levels during infection have not been determined. A negative RT-PCR result does not rule out infection with the 2019-Novel Coronavirus. Reilly Aguirre MD MICROBIOLOGY - GENERAL ORDER KYREE Final Result [facility] [facility] CLIA# [id number] [address] [place] [address] documented in this encounter Visit Diagnoses Not on filedocumented in this encounter Additional Health Concerns Infection Onset Date Last Indicated Resolved Time R/O COVID-19 01/30/2022 01/30/2022 02/01/2022 12:5 7 AM CDT R/O COVID-19 08/22/2023 08/22/2023 08/22/2023 2:27 PM [employer] COVID-19 08/22/2023 08/22/2023 09/21/2023 1:16 AM [employer] documented as of this encounter Care Teams Analytical Scientist Relationship Specialty Start Date End Date Charu Busby MD [address] [place] [phone] PCP - General Internal Medicine 10/17/22 documented as of this encounter
--- OUTSIDE RECORDS SUMMARY | 2025-06-14 13:13 | XMS_ITS | Encounter Summary ---
Author Organization [facility] Address [address] [place] [address] Care Team Providers Care Visitor Services Assistant Name Role Phone None, Provider Primary Care Provider Unavaila ble Encounter Details Date Type Department Care Team (Late st Contact Info) Description 11/09/2020 Prep for Procedure [facility] Pre-Admission Testing [facility] [place] [address] Nelson Combs S, DO [address] [address] Social History Tobacco Use Types Packs/Day Years Used Date Smoking Tobacco: Every Day Cigarettes 0.5 25 Electronic Cigarettes Smokeless Tobacco: Never Comments:doing e cigarettes [...] have Coronavirus / COVID-19? No / Unsure 11/09/2020 11:40 AM WASTE/MATERIALS EXCHANGE SPECIALIST documented as of this encounter Functional Status [...] Assessment Author Status No 06/28/2020 1:16 PM BRIDGETT Patricia Kramer RN Active * Do you have difficulty dressing or bathing? Answer Date of Assessment Author Status No 06/28/2020 1:16 PM Patricia Erwin RN Active * Because of a physical, mental, or emotional condition, do you have difficulty doing errands alone such as visiting a doctor's office or shopping? Answer Date of Assessment Author Status No 06/28/2020 1:16 PM Patricia Erwin RN Active documented as of this encounter Mental Status * Because of a physical, mental, or emotional condition, do you have serious difficulty concentrating, remembering, or making decisions? Answer Entry Date Author Status No 06/28/2020 1:16 PM Patricia Erwin RN Active documented in this encounter Plan of Treatment Not on file documented as of this encounter Results * PRE-SURGICAL/PRE-PROCEDURE CORONAVIRUS (COVID 19) (11/11/2020 11:37 AM WASTE/MATERIALS EXCHANGE SPECIALIST) CORONAVIRUS SARS COV 2 PCR (RESP) NOT DETECTED NOT DETECTED 11/12/2020 3:16 PM WASTE/MATERIALS EXCHANGE SPECIALIST [facility] Comment: A Not Detected (negative) test [...] providers and patients using the following websites: https://www.BidModos.com/home/Covid-19/HCP/QuestIVD/fact- sheet.html https://www.Cytosorbents.PT PAL/home/Covid-19/Patients/ QuestIVD/fact-sheet.html This test has been authorized by the FDA under an Emergency Use Authorization (EUA) for use by authorized laboratories. Due to the current public health emergency, [facility] is receiving a high volume of samples [...] about COVID-19 can be found at the [employer] website: www.InvitedHome.PT PAL/Covid19. Test performed at [facility] [address] [address] Director: KARLEY JIMENEZ DO,MPH FIRST TEST NO 11/11/2020 8:17 AM [facility] EMPLOYED IN HEALTHCARE YES 11/11/2020 8:17 AM [facility] SYMPTOMATIC DEFINED BY CDC NO 11/11/2020 8:17 AM [facility] DATE OF SYMPTOM ONSET NO 11/11/2020 12:06 PM [facility] HOSPITALIZATION STATUS NO 11/11/2020 8:17 AM [facility] PATIENT IN ICU NO 11/11/2020 8:17 AM [facility] RESIDENT OF [facility] NO 11/11/2020 8:17 AM [facility] NOT 11/11/2020 8:17 AM [facility] PATIENT'S RACE WHITE OR 11/11/2020 8:17 AM [facility] ETHNICITY NONHISPANIC 11/11/2020 8:17 AM WASTE/MATERIALS EXCHANGE SPECIALIST [facility] SOURCE (QST) NASOPHARYNGEAL SWAB 11/11/2020 8:17 AM WASTE/MATERIALS EXCHANGE SPECIALIST [facility] NASOPHARYNGEAL SWAB / Unknown 11/11/2020 11:37 AM WASTE/MATERIALS EXCHANGE SPECIALIST us Nelson Combs DO MICROBIOLOGY - GENERAL ORDERA BLES Final Result [facility] [address] [place] [address], [place] [phone] [facility] [id number] [place] [id number], documented in this encounter Visit Diagnoses Diagnosis Pre-op exam- Primary Preoperative examination, unspecified documented in this encounter Additional Health Concerns Infection Onset Date Last Indicated Resolved Time COVID-19 Rule Out 11/11/2020 11/11/2020 11/12/2020 3:16 PM WASTE/MATERIALS EXCHANGE SPECIALIST COVID-19 Rule Out 05/11/2021 05/11/2021 05/11/2021 11:52 AM CDT documented as of this encounter Care Teams Visitor Services Assistant Relationship Specialty Start Date End Date None, Provider, PCP - General 09/29/19 documented as of this encounter
--- OUTSIDE RECORDS SUMMARY | 2025-06-14 13:13 | XMS_ITS | Clinical Summary ---
Author Organization [facility] Address [address] [place] [address] Care Team Providers Care Glaze Mixer Name Role Phone None, Provider MD Primary Care Provider Unavaila ble Allergies Active Allergy Reactions Criticality Noted Date Comments Amoxicillin Anaphylaxis High 06/04/2019 Iodine Shortness of Breath High 06/04/2019 Ct contrast Doxycycline Rash Low 11/09/2020 Given at the time of several other new meds. Not sure if this is actually the allergy. Latex Shortness of Breath High 06/04/2019 Penicillins Anaphylaxis High 06/04/2019 Medications FLUoxetine 40 MG capsule Take 40 mg by mouth daily. Active cetirizine 10 MG tablet Take 10 mg by mouth daily. Active ondansetron 4 MG disintegrating tablet Take 1 tablet (4 mg total) by mouth every 8 (eight) hours as needed for Nausea. 20 tablet 1 Active nitrofurantoin, macrocrystal-monoh ydrate, 100 MG capsule Take 100 mg by mouth 2 (two) times daily. For 5 days beginning on 05/10/21 Active prochlorperazine 10 MG tablet Take 1 tablet (10 mg total) by mouth every 6 (six) hours as needed. 20 tablet 1 Active orphenadrine ER (NORFLEX) 100 MG TABLET SR 12 HR 12 hr tabletIndications: Myofascial neck pain Take 1 tablet (100 mg total) by mouth 2 (two) times daily as needed. 30 tablet 1 4 Active Active Problems Problem Noted Date Diagnosed Date IBD (inflammatory bowel disease) 07/10/2020 Overview (07/10/2020): Added automatically from request for surgery [id number] Large bowel obstruction ([facility]) 2019 Depression Arthritis Immunizations Immunization Administration Dates Next Due PFIZER COVID-19 (ORIGINAL FO RMULATION, PURPLE CAP) mRNA, LNP-S, PF, 30 MCG/0.3 ML DOSE 10/19/2020,09/28/2020 Family History Medical History Relation Comments No Known Problems Brother Heart Disease Father No Known Problems Maternal Aunt No Known Problems Maternal Grandfather No Known Problems Maternal Grandmother No Known Problems Maternal Uncle Hyperlipidemia Mother No Known Problems Paternal Aunt No Known Problems Paternal Grandfather No Known Problems Paternal Grandmother No Known Problems Paternal Uncle No Known Problems Sister Relation Status Comments Brother Alive Daughter Alive Father Alive Maternal Aunt Maternal Grandfather Maternal Grandmother Maternal Uncle Mother Alive Paternal Aunt Paternal Grandfather Paternal Grandmother Paternal Uncle Sister Alive Social History Tobacco Use Types [...] Sign Reading Time Taken Comments Blood Pressure 91/58 05/11/2021 9:57 AM CDT Pulse 71 05/11/2021 9:57 AM CDT Temperature 36.7 C (98.1 F) 05/11/2021 7:00 AM CDT Respiratory Rate 16 05/11/2021 9:57 AM CDT Oxygen Saturation 97% 05/11/2021 9:57 AM CDT Inhaled Oxygen Concentration - - Weight 65.8 kg (145 lb) 05/11/2021 7:00 AM CDT Height 160 cm (5' 3) 05/11/2021 7:00 AM CDT Body Mass Index 25.69 05/11/2021 7:00 AM CDT Plan of Treatment Health Maintenance Due Date Last Done Comments Annual Physical 1983 Hepatitis C 1998 DTaP, Tdap and Td Vaccines ( 1 - Tdap) 1999 Hepatitis B Vaccines (1 of 3 - 19+ 3-dose series) 1999 Pneumococcal Vaccine: Pediatrics (0 to 5 Years) and At-Risk Patients (6 to 49 Years) (1 of 2 - PCV) 1999 HPV Vaccines (1 - 3-dose SCD M series) 2007 Mammogram Screening 2020 COVID-19 Vaccine (3 - 2023-2 5 season) 2024 10/19/2020, 09/28/2020 PHQ-2 (Physician [place]) 10/13/2024 Colorectal Cancer Screening Colonoscopy (10 Years) 08/07/2030 08/07/2020 Meningococcal B Vaccine Aged Out No l onger eligible based on patient's age to complete this topic Meningococcal Vaccine Aged Out No aung mark eligible based on patient's age to complete this topic RSV Immunizations Under 20 Months Aged Out No longer eligible b ased on patient's age to complete this topic Advance Directives * Full Code (Latest Code Status on File) Date Activated Date Inactivated Comments 11/14/2020 11:02 AM 11/14/2020 2:07 PM * Full Code Date Activated Date Inactivated Comments 06/28/2020 4:57 AM 06/30/2020 11:57 AM Care Teams Glaze Mixer Relationship Specialty Start Date End Date None, Provider, PCP - General 09/29/19
--- NOTE | 2025-06-14 15:10 | ED.GENADULT ---
HPI - General Adult General Chief complaint: Unspecified <NAJMA Evans Last Filed: 06/14/25 15:21> Stated complaint: airway occlusion <NAJMA Evans Last Filed: 06/14/25 15:21> Time Seen by Provider: 06/14/25 15:10 <NAJMA Evans Last Filed: 06/14/25 15:21> Focused HPI: Patient is a 45 y/o female who presents to the ED via EMS with c/o airway occlusion. Patient reports she took her normal medications this morning and felt as though she choked on one of the pills. This occurred around noon. She went outside and states her neighbor gave her the Heimlich maneuver. She states this helped her breath better, but she did not expel any of the pills. She c/o painful swallowing, wheezing, gagging currently. Is able to swallow water. Denies SOB. SaO2 100% upon arrival to the ED. GENERAL: Well-appearing, well-nourished, and in no acute distress. HEAD: Normocephalic, atraumatic. CHEST: Frequent gagging and coughing on exam but lungs are clear to auscultation herman. No wheezing. No true stridor. HEART: Regular rate and rhythm.? NEURO: ?Alert and oriented x3. Patient screened in triage and initial orders placed.? ?Additional care and disposition to be based upon?diagnostic testing and treatment. <NAJMA Evans Last Filed: 06/14/25 15:21> Source: patient <NAJMA Evans Last Filed: 06/14/25 15:21> Mode of arrival: EMS <NAJMA Evans Last Filed: 06/14/25 15:21> Limitations: no limitations <NAJMA Evans Last Filed: 06/14/25 15:21> History of Present Illness HPI narrative: Agree with the above triage note <NAJMA Xavier Last Filed: 06/14/25 19:14> Related Data Home medications: Home Medications ?Medication ?Instructions ?Recorded ?Confirmed ?Last Taken ?Type fluoxetine 10 mg capsule (Prozac) mg 01/30/20 Unknown History <Elenita Head PA-C - Last Filed: 06/14/25 15:21> Allergies/adverse reactions: Allergies Allergy/AdvReac Type Severity Reaction Status Date / Time erythromycin base Allergy Rash Verified 06/14/25 15:56 iohexol (From contrast - CT, Allergy Difficulty Verified 06/14/25 15:56 X-RAY) Breathing latex Allergy Itching Verified 06/14/25 15:56 Penicillins Allergy Anaphylactic Verified 06/14/25 15:56 Shock <Elenita Head PA-C - Last Filed: 06/14/25 15:21> Review of Systems Review of Systems: All systems reviewed & are unremarkable except as noted in HPI and below <Angie Soler PA-C - Last Filed: 06/14/25 19:14> Exam Narrative: GENERAL: Frustrated, cursing HEAD: Normocephalic, atraumatic. EYES: EOMI. ENT: Nares clear, no rhinorrhea or epistaxis. Mucous membranes moist. Posterior pharynx without erythema or edema. No tonsillar hypertrophy or exudates. Uvula is midline. No airway compromise. Patient does have a hoarse voice. No true stridor. Patient tolerating secretions NECK: Supple. CHEST: Clear to auscultation. No respiratory distress. No wheezing, rales or rhonchi. Speaking in full sentences and satting 100% on room air HEART: Regular rate and rhythm. No murmur heard. Normal peripheral pulses. EXTREMITIES: Normal range of motion. No edema. SKIN: Warm, dry, no rash. NEURO: No focal deficits. Alert and oriented x3 <NAJMA Xavier Last Filed: 06/14/25 19:14> Course Vital Signs Vital signs: Vital Signs Temperature 97.4 F L 06/14/25 13:05 Pulse Rate 106 H 06/14/25 13:05 Respiratory Rate 18 06/14/25 13:05 Blood Pressure 111/71 06/14/25 13:05 Pulse Oximetry 100 06/14/25 13:05 Temperature 97.9 F 06/14/25 15:14 Pulse Rate 97 06/14/25 15:14 Respiratory Rate 20 06/14/25 15:55 Blood Pressure 136/87 06/14/25 15:14 Pulse Oximetry 100 06/14/25 15:14 <Elenita Head PA-C - Last Filed: 06/14/25 15:21> Vital Signs Temperature 97.4 F L 06/14/25 13:05 Pulse Rate 106 H 06/14/25 13:05 Respiratory Rate 18 06/14/25 13:05 Blood Pressure 111/71 06/14/25 13:05 Pulse Oximetry 100 06/14/25 13:05 Temperature 97.9 F 06/14/25 15:14 Pulse Rate 97 06/14/25 15:14 Respiratory Rate 20 06/14/25 15:55 Blood Pressure 136/87 06/14/25 15:14 Pulse Oximetry 100 06/14/25 15:14 <NAJMA Xavier Last Filed: 06/14/25 19:14> Medical Decision Making MDM Narrative Medical decision making narrative: MSE by AL in triage. <NAJMA Evans Last Filed: 06/14/25 15:21> MSE by AL in triage. 45-year-old female presents emergency department with concerns for choking on her pills about 4 hours ago. Patient states she took 3 pills and began choking on 1, had her neighbor perform the Heimlich. Since then has reported a sore throat, wheezing and hoarse voice. Vital stable upon my evaluation. She is satting 100% on room air. She is speaking in full sentences. Pt is very frustrated given her wait time and is cursing, threatening to leave, however is agreeable to allow me to examine her after deescalation. She has no stridor or wheezing on exam. Her voice is hoarse. There is no airway compromise or edema. She is tolerating her secretions. X-rays of the soft tissue neck shows no radiopaque foreign body, chest x-ray shows no focal consolidation and mild perihilar bronchial wall thickening suggestive of respiratory bronchiolitis. CT soft tissue neck and diagnostic chest added for further evaluation which shows no acute cardiopulmonary disease, no evidence of foreign body, unremarkable CT neck. Patient given IM Decadron with improvement. On re-evaluation she is resting comfortably in exam bed. Continues to have no airway compromise and is tolerating secretions. Patient is drinking water at bedside. Will discharge her home with prescription for liquid ibuprofen, encouraged soft diet for the next 48 hours and follow-up with her PCP. Discussed strict ED return precautions. She is agreeable with the plan verbalized understanding. Discharged in stable condition. <NAJMA Xavier Last Filed: 06/14/25 19:14> Vital Signs Vital Signs: Vital Signs Temperature 97.4 F L 06/14/25 13:05 Pulse Rate 106 H 06/14/25 13:05 Respiratory Rate 18 06/14/25 13:05 Blood Pressure 111/71 06/14/25 13:05 Pulse Oximetry 100 06/14/25 13:05 Temperature 97.9 F 06/14/25 15:14 Pulse Rate 97 06/14/25 15:14 Respiratory Rate 20 06/14/25 15:55 Blood Pressure 136/87 06/14/25 15:14 Pulse Oximetry 100 06/14/25 15:14 <NAJMA Evans Last Filed: 06/14/25 15:21> Vital Signs Temperature 97.4 F L 06/14/25 13:05 Pulse Rate 106 H 06/14/25 13:05 Respiratory Rate 18 06/14/25 13:05 Blood Pressure 111/71 06/14/25 13:05 Pulse Oximetry 100 06/14/25 13:05 Temperature 97.9 F 06/14/25 15:14 Pulse Rate 97 06/14/25 15:14 Respiratory Rate 20 06/14/25 15:55 Blood Pressure 136/87 06/14/25 15:14 Pulse Oximetry 100 06/14/25 15:14 <NAJMA Xavier Last Filed: 06/14/25 19:14> Discharge Plan Discharge Clinical Impression: Choking episode <NAJMA Evans Filed: 06/14/25 15:21> Patient Disposition: Home <NAJMA Evans Filed: 06/14/25 15:21> Condition: Stable <NAJMA Evans Last Filed: 06/14/25 15:21> Instructions: Antibiotic Form, How to Perform the Heimlich Maneuver (ED) <NAJMA Evans Last Filed: 06/14/25 15:21> Additional Instructions: Please eat a soft diet for the next 48 hours. Take ibuprofen as directed. Follow-up closely with her primary care provider. Return to the emergency department if you develop difficulty breathing, you are unable to tolerate your saliva or swallow, fever, or other concerning symptoms. <NAJMA Evans Last Filed: 06/14/25 15:21> Patient Language: Latvian <NAJMA Evans Last Filed: 06/14/25 15:21> Prescriptions: New ibuprofen 100 mg/5 mL suspension 600 mg PO QID PRN (Reason: pain) Qty: 473 0RF No Action fluoxetine [Prozac] 10 mg Capsule sulfamethoxazole-trimethoprim [Bactrim DS] 800-160 mg tablet 1 tablet PO Q12H 10 Days Qty: 20 0RF <NAJMA Evans Last Filed: 06/14/25 15:21> Follow-up/Referrals: UNKNOWN,DOCTOR [Non-Staff] <NAJMA Evans Last Filed: 06/14/25 15:21>
[2025-06-14 15:14] VITALS: BP 136/87; PULSE 97; RESP 16; TEMP 36.6; O2SAT 100
[2025-06-14] MEDS: BELLADONNA ALK/PHENOB ELIX 10 ML, MAG HYDROX/ALUMINUM HYD/SIMETH 30 ML, LIDOCAINE 2% VI... PO (15:53)
[2025-06-14 15:55] VITALS: RESP 20
--- OUTSIDE RECORDS SUMMARY | 2025-06-14 17:23 | XMS_ITS | Encounter Summary ---
Author Organization [facility] Address [address] [place] [address] Care Team Providers Care Devil Tender Name Role Phone Charu Busby MD Primary Care Provider [phone] Encounter Details Date Type Department Care Team (Late st Contact Info) Description 06/14/2025 External Device Data STL ABSTRACTION Provider, Abstract NO ADDRESS ON FILE Social History Tobacco Use Types Packs/Day Years Used Date Smoking Tobacco: Former Cigarettes 0.3 20 0 10/14/2001 - 10/14/2021 Passive Smoke Exposure: Never Smokeless Tobacco: Never Alcohol Use Standard Drinks/Week Comments Yes 14 [...] st Contact Info) Description 09/30/2025 8:00 AM APPLICATION SUPPORT TECHNICIAN Office Visit [facility] Primary [facility] [address] [place] [address] Erika Norton, ANAYA [address] [place] [address] 11/10/2025 8:30 AM APPLICATION SUPPORT TECHNICIAN Telephone Check Up [facility] [place] [facility] [address] [facility] [address] [place] [address] Marilu Aceves, PHARMACIST [address] [facility] [address] [place] [address] documented as of this encounter Visit Diagnoses Not on filedocumented in this encounter Care Teams Devil Tender Relationship Specialty Start Date End Date Charu Busby MD [address] [place] [phone] PCP - General Internal Medicine 10/17/22 documented as of this encounter
--- OUTSIDE RECORDS SUMMARY | 2025-06-14 17:23 | XMS_ITS | Clinical Summary ---
Author Organization [employer] [address] [place] [address] Address [facility] [place] [address] Care Team Providers Care Help Desk Engineer Name Role Phone Charu Busby MD Primary Care Provider [phone] Allergies Active Allergy Reactions Criticality Noted Date [...] at bedtime. 90 Tablet 08/24/2024 4:26 PM SILK SNAPPER 4 Active linaCLOtide (LINZESS) 145 mcg capsuleIndicatio ns:Irritable bowel syndrome with constipation Take 1 Capsule (145 mcg) by mouth daily before breakfast. 90 Capsule 09/23/2024 7:22 PM SILK SNAPPER 4 Active progesterone micronized (PROMETRIUM) 100 mg [...] mouth daily. 30 Tablet 12/10/2024 7:49 PM SILK SNAPPER 5 Active methylPREDNISolo ne (MEDROL DOSPACK) 4 [...] needed. 90 Tablet 1 11/29/2024 6:41 PM SILK SNAPPER 4 05/20/20 25 Discontinu ed(Duplica te Therapy) Active Problems Problem Noted Date Diagnosed Date Arthritis 05/08/2022 IBD (inflammatory bowel disease) 07/10/2020 Overview (05/08/2022): Added automatically from request for surgery [id number] Depression 05/04/2018 Resolved Problems Problem Noted Date Diagnosed Date Resolved Date Large bowel obstruction 06/28/202009/13 Encounters Date Type Department Care Team Description 06/14/2025 External Device Data STL ABSTRACTION Provider, Abstract 05/19/2025 8:30 AM CDT Telephone Check Up [facility] [place] [address] [place] [address] Marilu Aceves, PHARMACIST Chronic fatigue (Primary Dx); Insomnia, unspecified type; Perimenopausal symptoms 05/19/2025 Refill [facility] [address] [place] [address] Charu Busby MD Recurrent major depressive disorder, in partial remission 05/19/2025 Orders Only [facility] [address] [place] [address] Charu Busby MD Perimenopausal symptoms (Primary Dx); Screening mammogram, encounter for 03/15/2025 External Device Data STL ABSTRACTION Provider, Abstract from Last 3 Months Immunizations Immunization Administration Dates Next Due (ACE Portal)(12 YR UP) COVID-19 VACCINE - EMERGENCY USE AUTHORIZATION, MRNA, [id number](PF) 30 MCG/0.3 ML IM SUSP 08/01/2021 Influenza Seasonal Unspecifi ed Formulation IM 07/27/2024,07/29/2023,07/29/2023,2021,06/27/2022,07/06/2021 Family History Medical History Relation Name Comments No Known Problems Daughter Heart Disease Father Anil Valent Depression Mother Juanito Alpaent Sprunt High Cholesterol Mother Juanito Valent Sprunt Arthritis-rheumatoid Paternal Grandmother Dot valent Heart Disease Paternal Grandmother Dot valent Other Paternal Grandmother Dot valent Rheumat oid arthritis Relation Name Status Comments Brother Alive Daughter Alive Father Anil Valent Alive Maternal Grandfather Maternal Grandmother Alive Mother Juanitomj Yuenent Sprunt Alive Paternal Grandfather Paternal Grandmother Dot [...] st Contact Info) Description 09/30/2025 8:00 AM SILK SNAPPER Office Visit [facility] Primary Care [facility] [address] [place] [address] Erika Norton, POLICE SURGEON [address] [place] [phone] 11/10/2025 8:30 AM SILK SNAPPER Telephone Check Up [facility] [place] [facility] [address] [facility] [address] [address] [place] [address] Marilu Aceves, PHARMACIST [address] [facility] [address] [facility] [address] [place] [phone] Health Maintenance Due Date Last Done Comments DTAP/TDAP/TD VACCINES (1 - Tdap) 1999 HEPATITIS B VACCINES (1 of 3 - 19+ 3-dose series) 1999 HPV VACCINES (1 - 3-dose SCD M series) 2007 BREAST CANCER SCREENING 2020 COVID-19 Vaccine (4 - 2023-2 5 season) 2024 08/01/2021, 10/19/2020, 09/28/2020 Preventative [...] ID:Not on file Type:Not on file Address: [address] [facility] Care Teams Help Desk Engineer Relationship Specialty Start Date End Date Charu Busby MD [address] [place] [phone] PCP - General Internal Medicine 10/17/22
--- OUTSIDE RECORDS SUMMARY | 2025-06-14 17:23 | XMS_ITS | Encounter Summary ---
Author Organization [facility] Address [address] [place] [address] Care Team Providers Care Dextrine Mixer Name Role Phone Charu Busby MD Primary Care Provider [phone] Encounter Details Date Type Department Care Team (Late st Contact Info) Description 10/28/2021 Lab Requisition [facility] Services [address] [place] [address] [place] [address] [facility] [address] [place] [address] Social History Tobacco Use Types [...] st Contact Info) Description 09/30/2025 8:00 AM EMULSIFICATION OPERATOR Office Visit [facility] Primary Care [facility] [address] [place] [address] Erika Norton, ANAYA [address] [place] [address] 11/10/2025 8:30 AM EMULSIFICATION OPERATOR Telephone Check Up [facility] [place] [facility] [address] [place] [address] Marilu Aceves, PHARMACIST [address] [place] [address] documented as of this encounter Procedures Procedure Name Priority Date/Time Associated Diagnosis Comments 2019 NOVEL CORONAVIRUS (COVID-19) PCR DETECTION Routine 10/28/2021 9:50 AM EMULSIFICATION OPERATOR documented in this encounter Results * 2019 NOVEL CORONAVIRUS (COVID-19) PCR DETECTION (10/28/2021 9:50 AM EMULSIFICATION OPERATOR) COVID-19 PCR NOT DETECTED Not Detected 10/28/19 11:35 AM EMULSIFICATION OPERATOR [facility] PERFORMING [facility] 10/28/2021 11:35 AM EMULSIFICATION OPERATOR [facility] Upper Respiratory 10/28/2021 9:50 AM EMULSIFICATION OPERATOR 10/28/2021 10:34 AM EMULSIFICATION OPERATOR Narrative [facility] - 10/28/2021 11:35 AM EMULSIFICATION OPERATOR This test has been authorized by the [...] MICROBIOLOGY - GENERAL ORDER KYREE Final Result [facility] CLIA# [id number] [place] [address] documented in this encounter Visit Diagnoses Not on filedocumented in this encounter Additional Health Concerns Infection Onset Date Last Indicated Resolved Time R/O COVID-19 01/30/2022 01/30/2022 02/01/2022 12:5 7 AM CDT R/O COVID-19 08/22/2023 08/22/2023 08/22/2023 2:27 PM EMULSIFICATION OPERATOR COVID-19 08/22/2023 08/22/2023 09/21/2023 1:16 AM EMULSIFICATION OPERATOR documented as of this encounter Care Teams Dextrine Mixer Relationship Specialty Start Date End Date Charu Busby MD [address] [place] [phone] PCP - General Internal Medicine 10/17/22 documented as of this encounter
--- OUTSIDE RECORDS SUMMARY | 2025-06-14 17:23 | XMS_ITS | Encounter Summary ---
Author Organization [facility] Address [address] [place] [address] Care Team Providers Care Ent Consultant Name Role Phone None, Provider Primary Care Provider Unavaila ble Encounter Details Date Type Department Care Team (Late st Contact Info) Description 08/04/2020 Prep for Procedure [facility] One Day Services [place], [place] [phone] Ronaldo Xie MD [address] [phone] Social History Tobacco Use Types Packs/Day Years [...] DETECTED NOT DETECTED 08/05/2020 8:21 PM CDT [facility] Comment: A Not Detected (negative) test [...] providers and patients using the following websites: https://www.[employer].com/home/Covid-19/HCP/NAAT/fact-sheet2 https://www.[employer]/home/Covid-19/Patients/NAAT/ fact-sheet2 This test has been authorized by the FDA under an Emergency Use Authorization (EUA) for use by authorized laboratories. Due to the current public health emergency, [facility] is receiving a high volume of samples [...] about COVID-19 can be found at the [employer] website: [email or web address]/Covid19. Test performed at [facility] [place] [address] [place] [address] Director: KARLEY JIMENEZ DO,MPH FIRST TEST UNKNOWN 08/04/2020 2:34 PM CDT [facility] EMPLOYED IN HEALTHCARE YES 08/04/2020 2:34 PM CDT [facility] SYMPTOMATIC DEFINED BY CDC UNKNOWN 08/04/2020 2:34 PM CDT [facility] DATE OF SYMPTOM ONSET NO 08/04/2020 2:40 PM CDT [facility] HOSPITALIZATION STATUS NO 08/04/2020 2:34 PM CDT [facility] PATIENT IN ICU NO 08/04/2020 2:34 PM CDT [facility] RESIDENT OF [facility] UNKNOWN 08/04/2020 2:34 PM CDT [facility] NOT 08/04/2020 2:34 PM CDT [facility] PATIENT'S RACE WHITE OR 08/04/2020 2:34 PM CDT [facility] ETHNICITY NONHISPANIC 08/04/2020 2:34 PM CDT [facility] SOURCE (QST) NASOPHARYNGEAL SWAB 08/04/2020 2:34 PM CDT [facility] NASOPHARYNGEAL SWAB / Unknown 08/04/2020 12:40 PM CDT us Ronaldo Xie MD MICROBIOLOGY - GENERAL ORDERABLE S Final Result [facility] [address] [place] [address], [place] [phone] [facility] [address] [place] [address], documented in this encounter Visit Diagnoses Diagnosis Abdominal pain- Primary Abdominal pain, unspecified site documented in this encounter Additional Health Concerns Infection Onset Date Last Indicated Resolved Time COVID-19 Rule Out 08/04/2020 08/04/2020 08/05/2020 8:21 PM CDT COVID-19 Rule Out 09/11/2020 09/11/2020 09/11/2020 9:43 AM EXTERIOR DOOR INSTALLER COVID-19 Rule Out 11/11/2020 11/11/2020 11/12/2020 3:16 PM EXTERIOR DOOR INSTALLER COVID-19 Rule Out 05/11/2021 05/11/2021 05/11/2021 11:52 AM CDT documented as of this encounter Care Teams Ent Consultant Relationship Specialty Start Date End Date None, Provider, PCP - General 09/29/19 documented as of this encounter
--- OUTSIDE RECORDS SUMMARY | 2025-06-14 17:23 | XMS_ITS | Clinical Summary ---
Author Organization [facility] Address [address] [place] [address] Care Team Providers Care Pharmacy Analyst Name Role Phone None, Provider MD Primary [...] (07/10/2020): Added automatically from request for surgery [id number] Large bowel obstruction ([facility]) 2019 Depression Arthritis Immunizations Immunization Administration Dates [...] 5 season) 2024 10/19/2020, 09/28/2020 PHQ-2 (Physician [place]) 10/13/2024 Colorectal Cancer Screening Colonoscopy (10 Years) [...] 4:57 AM 06/30/2020 11:57 AM Care Teams Pharmacy Analyst Relationship Specialty Start Date End Date None, Provider, PCP - General 09/29/19
[2025-06-14] MEDS: dexAMETHasone SOD PHOS INJ 10 MG/ML 1 ML VIAL IM (17:31)
--- NOTE | 2025-06-14 17:53 | PC.NURSE ---
Pt has had a hysterectomy. CT called
== END 2025-06-14 19:25 | disposition home or self-care (01) ==
PROVIDERS: Emergency Provider Physician Assistant
DX: T17.998A Other foreign object in respiratory tract, part unspecified causing other injury, initial encounter (principal)
CPT/HCPCS: 70360; 70490; 71046; 71250; 96372; 99284; A9270; J1100